=== PATIENT | female | born 1950 | race Caucasian/White ===

== ENCOUNTER 2023-07-12 13:57 | Emergency (ER) | payer MEDICARE, MEDICAID, SELFPAY ==
--- NOTE | ~2023-07-12 | XR_ITS ---
EXAMINATION: XR CALCANEUS, LEFT CLINICAL INFORMATION: Pain COMPARISON: None available. TECHNIQUE: Lateral and axial views of the left calcaneus were obtained. FINDINGS: The bones and soft tissues are normal. No fracture. Alignment is anatomic. Joint spaces are maintained. No enthesopathic spurs are evident at the calcaneus. Prominent vascular calcification present. XR/XR calcaneus LT min 2V IMPRESSION: 1. No acute fracture or dislocation. 2. Prominent vascular calcification.
[2023-07-12 16:03] VITALS: BP 119/69; PULSE 93; RESP 18; TEMP 36; O2SAT 93; BMI 20.7
--- NOTE | 2023-07-12 16:05 | ED_ITS ---
HPI - General Adult General Chief complaint: Wound/Laceration Stated complaint: L food wound? Time Seen by Provider: 07/12/23 21:12 Source: patient Mode of arrival: ambulatory Limitations: no limitations History of Present Illness HPI narrative: 73-year-old female who presents emergency department for evaluation pressure ulcer to her left heel. The patient is in a electric wheelchair secondary to mobility issues. Patient states that visiting nurse looked at her heel several days ago and noted a pressure ulcer to her left heel . The nurse took a picture of the wound and sent it to the PCP who advised the patient to go to the emergency department for evaluation. Patient states that she has had a pressure ulcer to her heel in the past but cannot remember which she will ulcer was in. She denies being ill in any way over the past several days. She denied fever, chills, loss of appetite, fatigue beyond her baseline. She states she does have sensation in her feet and she does feel some pain in the area of the ulcer but she states this minimal. Related Data Previous Rx's Medication Instructions Recorded cephalexin 500 mg capsule 500 mg PO QID 10 days #40 caps 07/12/23 doxycycline hyclate 100 mg tablet 100 mg PO Q12H 10 days #20 tabs 07/12/23 Allergies Allergy/AdvReac Type Severity Reaction Status Date / Time aspirin Allergy Difficulty Verified 07/12/23 16:02 Breathing Review of Systems 2 Review of Systems: Yes all other systems are reviewed and are negative [facility] Social History Social History Smoked in Last 30 Days: No Use of substances other than those prescribed or required for medical reasons: No Advance Directives: No Advance Directives Information Provided: Yes Physical Exam ED Vital Signs: Vital Signs - 24 hr 07/12/23 16:03 07/12/23 20:27 Temperature 96.8 F 98.0 F Pulse Rate 93 78 Respiratory Rate 18 16 Blood Pressure 119/69 150/76 H Pulse Oximetry 93 97 Oxygen Delivery Method Room Air Room Air BMI result Body Mass Index 20.7 Vital signs were normal Exam: General: Awake, alert in no distress, patient sitting in her electronic wheelchair Extremities: Patient has rigidity of both legs and it was difficult to straighten her left leg. I was able to visualize the ulcer the ulcer is approximately 3 x 2 cm, there is a thick eschar over the center of the ulcer, there is some slight erythema surrounding the ulcer but is not warm to the touch, there was no erythema of her foot ankle or lower extremity. There was no purulent drainage. Course Course Course Narrative: RME- 73 year old female presents for evaluation of a wound to her left heel. the patient is wheelchair-bound at baseline. She is unsure of how long she has had a wound to her left heel. Plan for Labs, x-ray of the calcaneus Medical Decision Making Medical Decision Making MDM Narrative: 73-year-old female who has limited mobility and is in a electric wheelchair who presents emergency department for evaluation of a left heel ulcer which was notice several days prior by her visiting nurse. Patient has minimal pain in the area. She has had no systemic symptoms. Examination is consistent with a pressure ulcer with a small area of cellulitis around the ulcer. There is an eschar over the center of the ulcer but no purulent drainage. Following laboratory evaluation was ordered: CBC, CMP, CRP, ESR Patient was treated with doxycycline 100 mg IV and Keflex 500 mg IV 21:49 My independent interpretation patient's laboratory evaluation is as follows, WBC was normal at 7400, AST and ALT were elevated 51 and 90. Glucose was elevated 126. CRP was elevated 1.15, ESR elevated 67. X-ray of the calcaneus did not reveal any obvious osteomyelitis at this time. Patient's ulcer was dressed with bacitracin and a nonstick dressing. She was given ordered her 1st dose of doxycycline and Keflex in the emergency department. She was started on doxycycline 100 mg q.12 hours times 10 days and Keflex 500 mg q.i.d. times 10 days. Patient will be referred to our wound clinic Lab Data 07/12/23 16:36 07/12/23 16:36 Labs: Lab Results 07/12/23 Range/Units 16:36 WBC 7.4 (4.8-10.8) X10*3/uL RBC 4.41 (4.20-5.50) X10*6/uL Hgb 13.0 (12.0-16.0) g/dl Hct 41.5 (37.0-47.0) % MCV 94.1 (80.0-98.0) fL MCH 29.5 (27.0-33.0) pg MCHC 31.3 (31.0-35.0) g/dl RDW 15.0 (11.0-16.0) % Plt Count 339 (160-400) X10*3/uL MPV 9.2 L (9.4-12.3) fL Immature Gran % (Auto) 0.4 (0.0-0.4) % Neut % (Auto) 73.8 H (45-73) % Lymph % (Auto) 14.6 L (20-40) % [place] % (Auto) 7.2 (2-11) % Eos % (Auto) 3.3 (0-4) % Baso % (Auto) 0.7 (0-2) % Lymph # (Auto) 1.1 L (1.2-4.9) X10*3/uL [place] # (Auto) 0.5 (0.1-1.2) X10*3/uL Eos # (Auto) 0.2 (0.0-0.4) X10*3/uL Baso # (Auto) 0.1 (0.0-0.2) X10*3/uL Abs Immat Gran (auto) 0.03 (0.00-0.03) X10*3/uL Absolute Neuts (auto) 5.4 (2.0-8.3) x10*3/uL Absolute Nucleated RBC 0.000 (0.0-0.012) X10*3/uL Nucleated RBC % (auto) 0.0 (0.0-0.2) /100WBC ESR 67 H (0-20) MM/HR Sodium 142 (135-145) mmol/L Potassium 3.8 (3.3-5.1) mmol/L Chloride 108 (96-108) mmol/L Carbon Dioxide 26 (22-29) mmol/L Anion Gap 12 (12-20) BUN 16 (9-16) mg/dL Creatinine 0.70 (0.5-1.4) mg/dL Estim Creat Clear Calc 73.9 Estimated GFR > 60 Random Glucose 127 H (60-115) mg/dL Lactic Acid 1.0 (0.5-2.0) mmol/L Calcium 9.5 (8.4-10.2) mg/dL Total Bilirubin 0.5 (0.0-1.0) mg/dL AST 51 H (5-31) U/L ALT 90 H (0-31) U/L Alkaline Phosphatase 76 (39-117) U/L C-Reactive Protein 1.15 H (< or = 0.50) mg/dL Total Protein 7.8 (6.5-8.0) g/dL Albumin 4.0 (3.5-5.0) g/dL Lipase 20 (8-78) U/L Independent Interpretation I performed an independent interpretation of an: Plain X-Ray Interpretation: My interpretation of the patient's two view calcaneus x-ray is as follows: no acute fractures, no osteomyelitis seen Radiology Impression Discussion of test interpretation with radiology: I have reviewed the radiologist's reading. Radiologist Impression: XR calcaneus LT min 2V IMPRESSION: 1. No acute fracture or dislocation. 2. Prominent vascular calcification. Dictated By: Mayur Maria MD Discharge Plan Discharge Clinical Impression: Pressure ulcer of heel Qualifiers: Laterality: left Cellulitis Qualifiers: Site of cellulitis: extremity Site of cellulitis of extremity: lower extremity Laterality: left Qualified Code(s): L03.116 - Cellulitis of left lower limb Patient Disposition: Home, Self-Care Instructions: Cellulitis (ED) Additional Instructions: The wound over your heel is consistent with a pressure ulcer. There is some slight redness around the wound which is consistent with a skin infection (cellulitis) Take doxycycline 100 mg, 1 pill every 12 hours for 10 days Take Keflex (cephalexin) 500 mg pills, 1 pill 4 times a day for 10 days. Apply bacitracin once a day to the wound. You will need to follow-up with our wound care clinic (Dr. Wakefield) for further management and treatment of this pressure ulcer. Follow-up with your doctor in 2 days. Please return to the emergency department if your symptoms get worse or if you develop any symptoms that are concerning to you. Prescriptions: New cephalexin 500 mg capsule 500 mg PO QID 10 Days Qty: 40 0RF doxycycline hyclate 100 mg tablet 100 mg PO Q12H 10 Days Qty: 20 0RF Referrals: Romi Wakefield MD [Physician] - 1 week (left heal pressure ulcer with cellulitis)
[2023-07-12 16:41] LABS: MANUAL DIFF FLAG NO
[2023-07-12 16:45] LABS: Basophils Absolute Auto 0.1 X10*3/uL (0.0-0.2); Basophils Percent Auto 0.7 % (0-2); Eosinophils Absolute Auto 0.2 X10*3/uL (0.0-0.4); Eosinophils Percent Auto 3.3 % (0-4); Hematocrit 41.5 % (37.0-47.0); Imm Gran Abs Auto 0.03 X10*3/uL (0.00-0.03); Imm Gran Pct Auto 0.4 % (0.0-0.4); Lymphocytes Absolute Auto 1.1 X10*3/uL (1.2-4.9); Lymphocytes Percent Auto 14.6 % (20-40); Mean Corpuscular HGB Conc 31.3 g/dl (31.0-35.0); Mean Corpuscular Hemoglobin 29.5 pg (27.0-33.0); Mean Corpuscular Volume 94.1 fL (80.0-98.0); Mean Platelet Volume 9.2 fL (9.4-12.3); Monocytes Absolute Auto 0.5 X10*3/uL (0.1-1.2); Monocytes Percent Auto 7.2 % (2-11); Neutrophils Absolute Auto 5.4 x10*3/uL (2.0-8.3); Neutrophils Percent Auto 73.8 % (45-73); Platelet Count 339 X10*3/uL (160-400); Red Blood Count 4.41 X10*6/uL (4.20-5.50); White Blood Count 7.4 X10*3/uL (4.8-10.8)
[2023-07-12 17:00] LABS: Alanine Aminotransferase 90 U/L (0-31); Alkaline Phosphatase 76 U/L (39-117); Anion Gap 12 (12-20); Aspartate Amino Transferase 51 U/L (5-31); Bilirubin Total 0.5 mg/dL (0.0-1.0); Blood Urea Nitrogen 16 mg/dL (9-16); C Reactive Protein 1.15 mg/dL (< or = 0.50); Calcium 9.5 mg/dL (8.4-10.2); Carbon Dioxide 26 mmol/L (22-29); Chloride 108 mmol/L (96-108); Creatinine Clr Calc Pharmacy 73.9; Estimated Glomerular Filt Rate > 60; Glucose Random 127 mg/dL (60-115); Lipase 20 U/L (8-78); Potassium 3.8 mmol/L (3.3-5.1); Sodium 142 mmol/L (135-145); Total Protein 7.8 g/dL (6.5-8.0)
[2023-07-12 17:22] LABS: Erythrocyte Sedimentation Rate 67 MM/HR (0-20)
--- NOTE | 2023-07-12 20:20 | PC.NURSE ---
Assumed care of pt. Pt lives in assisted living, noted pain to heel a few days [employer], wound appearing on heel as documented appears to be long than a few days old. Pt wheelchair bound, limited CMS to BLE, endorsing mild pain at this time.
[2023-07-12 20:27] VITALS: BP 150/76; PULSE 78; RESP 16; TEMP 36.7; O2SAT 97
[2023-07-12] MEDS: cephALEXin 500 MG CAPSULE PO (21:54)
[2023-07-12] MEDS: Doxycycline Monohydrate 100 MG CAPSULE PO (21:55)
== END 2023-07-12 22:07 | disposition home or self-care (01) ==
PROVIDERS: Physician Assistant; Emergency Provider Emergency Medicine Emergency Medical Services; PCP Internal Medicine
DX: L03.116 Cellulitis of left lower limb (principal); L97.429 Non-pressure chronic ulcer of left heel and midfoot with unspecified severity; Z79.899 Other long term (current) drug therapy
CPT/HCPCS: 36415; 73650; 80053; 83605; 83690; 85025; 85652; 86140; 87040; 99283; 99284

== ENCOUNTER 2023-08-05 12:16 | Emergency (ER) | payer MEDICARE, SELFPAY ==
--- NOTE | ~2023-08-05 | XR_ITS ---
EXAMINATION: XR CALCANEUS, LEFT CLINICAL INFORMATION: Deep wound. Question bone erosion. COMPARISON: None available. TECHNIQUE: Lateral and axial views of the left calcaneus were obtained. FINDINGS: The bones are osteopenic. No fracture or dislocation. No x-ray evidence of osteomyelitis. Joint spaces are normal. Soft tissue arterial calcification. XR/XR calcaneus LT min 2V IMPRESSION: Osteopenia. No x-ray evidence of osteomyelitis.
--- NOTE | ~2023-08-05 | XR_ITS ---
EXAMINATION: XR ABDOMEN KUB CLINICAL INDICATION: Fecal and reaction COMPARISON: None available. TECHNIQUE: AP view of the abdomen. FINDINGS: Mild stool burden. No dilated bowel to suggest obstruction. No evidence of fecal reaction. No free air. IVC filter appears broken with multiple interrupted struts. Left hip replacement. Evidence of old trauma to the pelvis. Degenerative changes of the lumbar spine. XR/XR KUB IMPRESSION: Mild stool burden. No evidence of fecal impaction obstruction. Broken IVC filter.
--- NOTE | 2023-08-05 12:39 | ED_ITS ---
HPI - Abdominal Pain General Chief Complaint: Abdominal Pain Stated Complaint: Stomach Issues Sent By PCP Time Seen by Provider: 08/05/23 19:34 Source: patient Mode of arrival: ambulatory Limitations: no limitations History of Present Illness HPI narrative: Patient history of multiple sclerosis on wheelchair bound does have history of constipation usually moves every 2 3 days this time he has not moved her bowels for last 1 week feels abdomen floated had a abdominal x-ray was outpatient which showed greater amount of stool with possible ileus no vomiting patient not eating much has taken Dulcolax given by PCP yesterday patient is still passing flatus Related Data Previous Rx's Medication Instructions Recorded cephalexin 500 mg capsule 500 mg PO QID 10 days #40 caps 07/12/23 doxycycline hyclate 100 mg tablet 100 mg PO Q12H 10 days #20 tabs 07/12/23 bisacodyl 5 mg tablet,delayed 5 mg PO BEDTIME PRN constipation 08/06/23 release (Dulcolax (bisacodyl)) #30 tabs cefuroxime axetil 500 mg tablet 500 mg PO BID 7 days #14 tabs 08/06/23 doxycycline hyclate 100 mg tablet 100 mg PO BID #20 tabs 08/06/23 polyethylene glycol 3350 17 17 g PO DAILY #510 grams 08/06/23 gram/dose oral powder (Miralax) Allergies Allergy/AdvReac Type Severity Reaction Status Date / Time aspirin Allergy Difficulty Verified 08/05/23 12:40 Breathing Review of Systems Review of Systems Yes all other systems are reviewed and are negative [facility] Past Medical History Medical History (Updated 08/06/23 @ 00:42 by Navarro Pierson MD) Chronic constipation Multiple sclerosis Social History Social History Smoked in Last 30 Days: No Use of substances other than those prescribed or required for medical reasons: No Advance Directives: No Advance Directives Information Provided: Yes Physical Exam ED Vital Signs: Vital Signs - 24 hr 08/05/23 12:40 08/05/23 19:40 08/05/23 20:11 Temperature 98 F 97.8 F Pulse Rate 111 H 105 H Respiratory Rate 19 16 Blood Pressure 128/93 H 156/79 H Pulse Oximetry 94 94 Oxygen Delivery Method Room Air Room Air 08/05/23 23:06 08/06/23 01:13 Temperature 97.5 F 97.7 F Pulse Rate 96 100 Respiratory Rate 14 16 Blood Pressure 162/86 H 144/68 H Pulse Oximetry 93 92 Oxygen Delivery Method Room Air Room Air BMI result Body Mass Index 20.7 Appearance: Alert. Oriented X3. No acute distress. Eyes: No pallor or icterus ENT: Pharynx normal. Oral Mucosa moist Neck: Normal inspection. Neck supple. CVS: Normal heart rate and rhythm. Pulses normal. Respiratory: No respiratory distress. Equal air entry bilateral, no wheezing/rales/rhonchi Abdomen: Soft and nontender. Bowel sounds are sluggish no mass palpable, no CVA tenderness Skin: Skin warm and dry. Normal skin color. Normal skin turgor. Extremities: Left heel blackish eschar at the calcaneus with slight discharge Neuro: Oriented X 3. Decreased movement of lower extremity Course Course Course Narrative: RME: 73 year-oldF w/ PMHx MS, wheelchair bound presenting to the ED from assisted living c/o abdominal pain w/o BM x7 days. Had outpatient XR showing ileus. Taking Laxative 1x daily w/o relief. admits to reduced flatuance Labs, UA, CT ordered Full HPI, ROS and PE to be performed by primary ED provider. Medical Decision Making Medical Decision Making [facility] Narrative: Patient constipation KUB did not show any fecal impaction patient received p.o. milk of magnesia and Dulcolax will discharge patient home on oral medication for constipation does have a chronic left heel ulcer followed by wound care dressing was applied will give antibiotic doxycycline Ceftin which will help in the healing of the wound along with UTI Differential Diagnosis Differential Diagnoses: The differential diagnosis associated with the presentation includes Fecal impaction/constipation/UTI/wound infection Admission/Observation Consideration of admission/observation: Escalation of care including admission/observation considered Lab Data [facility] Lab Attestation statement: I reviewed the patient's lab results. 08/05/23 15:10 08/05/23 15:10 Labs: Lab Results 08/05/23 08/05/23 Range/Units 15:10 23:11 WBC 7.0 (4.8-10.8) X10*3/uL RBC 4.57 (4.20-5.50) X10*6/uL Hgb 13.7 (12.0-16.0) g/dl Hct 43.3 (37.0-47.0) % MCV 94.7 (80.0-98.0) fL MCH 30.0 (27.0-33.0) pg MCHC 31.6 (31.0-35.0) g/dl RDW 14.7 (11.0-16.0) % Plt Count 281 (160-400) X10*3/uL MPV 9.7 (9.4-12.3) fL Immature Gran % (Auto) 0.3 (0.0-0.4) % Neut % (Auto) 77.3 H (45-73) % Lymph % (Auto) 13.4 L (20-40) % [place] % (Auto) 6.9 (2-11) % Eos % (Auto) 1.7 (0-4) % Baso % (Auto) 0.4 (0-2) % Lymph # (Auto) 0.9 L (1.2-4.9) X10*3/uL [place] # (Auto) 0.5 (0.1-1.2) X10*3/uL Eos # (Auto) 0.1 (0.0-0.4) X10*3/uL Baso # (Auto) 0.0 (0.0-0.2) X10*3/uL Abs Immat Gran (auto) 0.02 (0.00-0.03) X10*3/uL Absolute Neuts (auto) 5.4 (2.0-8.3) x10*3/uL Absolute Nucleated RBC 0.000 (0.0-0.012) X10*3/uL Nucleated RBC % (auto) 0.0 (0.0-0.2) /100WBC Sodium 140 (135-145) mmol/L Potassium 4.0 (3.3-5.1) mmol/L Chloride 107 (96-108) mmol/L Carbon Dioxide 22 (22-29) mmol/L Anion Gap 15 (12-20) BUN 11 (9-16) mg/dL Creatinine 0.68 (0.5-1.4) mg/dL Estim Creat Clear Calc 76.0 Estimated GFR > 60 Random Glucose 79 (60-115) mg/dL Calcium 9.2 (8.4-10.2) mg/dL Magnesium 2.0 (1.6-2.6) mg/dL Total Bilirubin 0.6 (0.0-1.0) mg/dL Direct Bilirubin 0.3 (0.0-0.5) mg/dL AST 23 (5-31) U/L ALT 20 (0-31) U/L Alkaline Phosphatase 78 (39-117) U/L Total Protein 7.5 (6.5-8.0) g/dL Albumin 3.8 (3.5-5.0) g/dL Lipase 19 (8-78) U/L Urine Color Yellow Urine Appearance Clear Urine pH 5.5 (5.0-9.0) Ur Specific [place] 1.025 (1.005-1.025) Urine Protein Trace (Neg-Trace) mg/dL Urine Glucose (UA) Negative (Negative) mg/dL Urine Ketones 80 (Negative) mg/dL Urine Blood Moderate (2+) H (Negative) Urine Nitrite Positive H (Negative) Ur Leukocyte Esterase Small (1+) H (Negative) Urine RBC 0-2 (0-2) /HPF Urine WBC 11-20 H (0-5) /HPF Ur Squamous Epith Cells 6-10 (0-2) /HPF Urine Bacteria 4+ (None Seen) Hyaline Casts 0-2 (0-2) /LPF Independent Interpretation I performed an independent interpretation of an: Plain X-Ray Radiology Impression Discussion of test interpretation with radiology: I have reviewed the radiologist's reading. Medications Administered Discontinued Medications Generic Name Dose Route Start Last Admin Trade Name Freq PRN Reason Stop Dose Admin Bisacodyl 10 mg 08/05/23 20:04 08/05/23 22:43 Bisacodyl 5 Mg Tablet. PO 08/05/23 20:05 10 mg ONCE ONE Administration Cefuroxime Axetil 500 mg 08/06/23 01:05 08/06/23 01:19 Cefuroxime Axetil 500 Mg Tablet PO 08/06/23 01:06 500 mg ONCE ONE Administration Doxycycline Monohydrate 100 mg 08/06/23 00:38 08/06/23 01:19 Doxycycline Monohydrate 100 Mg Capsule PO 08/06/23 00:39 100 mg ONCE ONE Administration Magnesium Hydroxide 30 ml 08/05/23 20:04 08/05/23 22:42 Milk Of Magnesia 30 Ml Oral.Susp PO 08/05/23 20:05 30 ml ONCE ONE Administration Polyethylene Glycol 17 gm 08/06/23 00:37 08/06/23 01:19 Polyethylene Glycol 3350 17 Gm Powd.Pack PO 08/06/23 00:38 17 gm ONCE ONE Administration Discharge Plan Discharge Clinical Impression: Constipation, Non healing left heel wound, Acute UTI Patient Disposition: Home, Self-Care Instructions: Constipation (ED), Wound Infection (ED), Urinary Tract Infection in Older Adults (ED) Additional Instructions: Local care of the left heel wound as advised and follow-up with wound care Antibiotic as prescribed for chronic wound and UTI Drink plenty of fluids MiraLax daily for constipation Follow with PCP Prescriptions: New polyethylene glycol 3350 [Miralax] 17 gram/dose powder 17 g PO DAILY Qty: 510 0RF bisacodyl [Dulcolax (bisacodyl)] 5 mg tablet,delayed release (DR/EC) 5 mg PO BEDTIME PRN (Reason: constipation) Qty: 30 0RF cefuroxime axetil 500 mg tablet 500 mg PO BID 7 Days Qty: 14 0RF doxycycline hyclate 100 mg tablet 100 mg PO BID Qty: 20 0RF No Action cephalexin 500 mg capsule 500 mg PO QID 10 Days Qty: 40 0RF doxycycline hyclate 100 mg tablet 100 mg PO Q12H 10 Days Qty: 20 0RF
[2023-08-05 12:40] VITALS: BP 128/93; PULSE 111; RESP 19; TEMP 36.6; O2SAT 94; BMI 20.7
[2023-08-05 15:15] LABS: MANUAL DIFF FLAG NO
[2023-08-05 15:16] LABS: Basophils Percent Auto 0.4 % (0-2); Eosinophils Absolute Auto 0.1 X10*3/uL (0.0-0.4); Eosinophils Percent Auto 1.7 % (0-4); Hematocrit 43.3 % (37.0-47.0); Hemoglobin 13.7 g/dl (12.0-16.0); Imm Gran Abs Auto 0.02 X10*3/uL (0.00-0.03); Imm Gran Pct Auto 0.3 % (0.0-0.4); Lymphocytes Absolute Auto 0.9 X10*3/uL (1.2-4.9); Lymphocytes Percent Auto 13.4 % (20-40); Mean Corpuscular HGB Conc 31.6 g/dl (31.0-35.0); Mean Corpuscular Volume 94.7 fL (80.0-98.0); Mean Platelet Volume 9.7 fL (9.4-12.3); Monocytes Absolute Auto 0.5 X10*3/uL (0.1-1.2); Monocytes Percent Auto 6.9 % (2-11); Neutrophils Absolute Auto 5.4 x10*3/uL (2.0-8.3); Neutrophils Percent Auto 77.3 % (45-73); Platelet Count 281 X10*3/uL (160-400); Red Blood Count 4.57 X10*6/uL (4.20-5.50); Red Cell Distribution Width 14.7 % (11.0-16.0)
[2023-08-05 15:32] LABS: Alanine Aminotransferase 20 U/L (0-31); Albumin Level 3.8 g/dL (3.5-5.0); Alkaline Phosphatase 78 U/L (39-117); Anion Gap 15 (12-20); Aspartate Amino Transferase 23 U/L (5-31); Bilirubin Direct 0.3 mg/dL (0.0-0.5); Bilirubin Total 0.6 mg/dL (0.0-1.0); Blood Urea Nitrogen 11 mg/dL (9-16); Calcium 9.2 mg/dL (8.4-10.2); Carbon Dioxide 22 mmol/L (22-29); Chloride 107 mmol/L (96-108); Estimated Glomerular Filt Rate > 60; Glucose Random 79 mg/dL (60-115); Lipase 19 U/L (8-78); Sodium 140 mmol/L (135-145); Total Protein 7.5 g/dL (6.5-8.0)
[2023-08-05 19:40] VITALS: PULSE 105; RESP 16; TEMP 36.6; O2SAT 94
[2023-08-05 20:11] VITALS: BP 156/79
[2023-08-05] MEDS: Milk of Magnesia 30 ML ORAL.SUSP PO (22:42)
[2023-08-05] MEDS: bisacodyL 5 MG TABLET.DR 10 MG PO (22:43)
[2023-08-05 23:06] VITALS: BP 162/86; PULSE 96; RESP 14; TEMP 36.4; O2SAT 93
[2023-08-05 23:17] LABS: Appearance Urine Clear; Color Urine Yellow; Glucose Urine UA Negative (Negative); Leukocyte Esterase Urine Small (1+) (Negative); Nitrite Urine Positive (Negative); PH 5.5 (5.0-9.0); Specific Gravity - Urine 1.025 (1.005-1.025); UMIC TRIGGER UACC YES; Urine Blood Moderate (2+) (Negative); Urine Ketones 80 mg/dL (Negative); Urine Protein Trace mg/dL (Neg-Trace)
[2023-08-05 23:27] LABS: Bacteria Urine 4+ (None Seen); Hyaline Casts Urine 0-2 /LPF (0-2); RBC Urine 0-2 /HPF (0-2); UACC Culture Trigger YES
[2023-08-06 01:13] VITALS: BP 144/68; PULSE 100; RESP 16; TEMP 36.5; O2SAT 92
[2023-08-06] MEDS: polyethylene glycoL 3350 17 GM POWD.PACK PO (01:19)
[2023-08-06] MEDS: cefuroxime axetiL 500 MG TABLET PO (01:19)
[2023-08-06] MEDS: Doxycycline Monohydrate 100 MG CAPSULE PO (01:19)
== END 2023-08-06 04:02 | disposition home or self-care (01) ==
PROVIDERS: Physician Assistant; Emergency Provider Internal Medicine; PCP Internal Medicine
DX: K59.00 Constipation, unspecified (principal); L97.429 Non-pressure chronic ulcer of left heel and midfoot with unspecified severity; N39.0 Urinary tract infection, site not specified; G35 Multiple sclerosis
CPT/HCPCS: 36415; 73650; 74018; 80048; 80076; 81001; 83690; 83735; 85025; 87086; 99284

== ENCOUNTER 2023-08-27 14:49 | Outpatient (REF) | payer MEDICARE, SELFPAY ==
--- NOTE | ~2023-08-27 | US_ITS ---
EXAMINATION: US NONINVASIVE ASSESSMENT OF THE ARTERIES OF THE LEFT LOWER EXTREMITIES INCLUDING bilateral PVR EXAM AND LOWER EXTREMITY DUPLEX. CLINICAL INFORMATION: Peripheral vascular disease COMPARISON: None TECHNIQUE: Ankle pulse volume recordings, ankle pressure measurements and ankle brachial indices were obtained of the lower extremity arterial system bilaterally in addition to duplex Doppler techniques with wave form analysis and measurement of velocities of the left common femoral, profunda femoral, superficial femoral, popliteal, tibial and peroneal arteries. The study was performed only at rest. FINDINGS: RIGHT LE. THE RIGHT ANKLE-BRACHIAL INDEX IS: 1.18 >0.97-1.25 = normal - no significant arterial disease 0.75-0.96 = mild peripheral arterial disease 0.5-0.74 = moderate peripheral arterial disease <0.50 = severe peripheral arterial disease <0.30 = critical arterial disease 2. SEGMENTAL PRESSURES (mmHg): Ankle: PT 200, DP 200 3. PVR WAVEFORMS: Ankle: Normal 4. DIRECT DUPLEX: Not performed. LEFT LE. THE LEFT ANKLE-BRACHIAL INDEX IS: 1.18 >0.97-1.25 = normal - no significant arterial disease 0.75-0.96 = mild peripheral arterial disease 0.5-0.74 = moderate peripheral arterial disease <0.50 = severe peripheral arterial disease <0.30 = critical arterial disease 2. SEGMENTAL PRESSURES: Ankle: PT 0, DP 200 3. PVR WAVEFORMS: Ankle: Dampened 4. DIRECT DUPLEX: Common femoral artery: 65 cm/s, biphasic Profunda femoris artery: 59 cm/s, Multiphasic Superficial femoral artery (proximal): Occluded Superficial femoral artery (mid): Occluded Superficial femoral artery (distal): 82 cm/s, monophasic Distal popliteal artery: 33 cm/s, monophasic Distal anterior tibial artery: 27 cm/s, monophasic Mid posterior tibial artery: 21 cm/s, monophasic Dorsalis pedis: 11 cm/s, monophasic US/US arterial duplex LE LT IMPRESSION: 1. Long segment occlusion of the proximal and mid left superficial femoral artery with reconstitution distally from collateral flow. Distal to the occlusion, there is diminished monophasic perfusion suggestive of peripheral vascular disease. 2. Left proximal SHERI occluded but patent distally. 3. Nondiagnostic right lower extremity JENNIFER secondary to elevated ankle pressures.
--- NOTE | ~2023-08-27 | US_ITS ---
EXAMINATION: US NONINVASIVE ASSESSMENT OF THE ARTERIES OF THE LEFT LOWER EXTREMITIES INCLUDING bilateral PVR EXAM AND LOWER EXTREMITY DUPLEX. CLINICAL INFORMATION: Peripheral vascular disease COMPARISON: None TECHNIQUE: Ankle pulse volume recordings, ankle pressure measurements and ankle brachial indices were obtained of the lower extremity arterial system bilaterally in addition to duplex Doppler techniques with wave form analysis and measurement of velocities of the left common femoral, profunda femoral, superficial femoral, popliteal, tibial and peroneal arteries. The study was performed only at rest. FINDINGS: RIGHT LE. THE RIGHT ANKLE-BRACHIAL INDEX IS: 1.18 >0.97-1.25 = normal - no significant arterial disease 0.75-0.96 = mild peripheral arterial disease 0.5-0.74 = moderate peripheral arterial disease <0.50 = severe peripheral arterial disease <0.30 = critical arterial disease 2. SEGMENTAL PRESSURES (mmHg): Ankle: PT 200, DP 200 3. PVR WAVEFORMS: Ankle: Normal 4. DIRECT DUPLEX: Not performed. LEFT LE. THE LEFT ANKLE-BRACHIAL INDEX IS: 1.18 >0.97-1.25 = normal - no significant arterial disease 0.75-0.96 = mild peripheral arterial disease 0.5-0.74 = moderate peripheral arterial disease <0.50 = severe peripheral arterial disease <0.30 = critical arterial disease 2. SEGMENTAL PRESSURES: Ankle: PT 0, DP 200 3. PVR WAVEFORMS: Ankle: Dampened 4. DIRECT DUPLEX: Common femoral artery: 65 cm/s, biphasic Profunda femoris artery: 59 cm/s, Multiphasic Superficial femoral artery (proximal): Occluded Superficial femoral artery (mid): Occluded Superficial femoral artery (distal): 82 cm/s, monophasic Distal popliteal artery: 33 cm/s, monophasic Distal anterior tibial artery: 27 cm/s, monophasic Mid posterior tibial artery: 21 cm/s, monophasic Dorsalis pedis: 11 cm/s, monophasic US/US JENNIFER complete IMPRESSION: 1. Long segment occlusion of the proximal and mid left superficial femoral artery with reconstitution distally from collateral flow. Distal to the occlusion, there is diminished monophasic perfusion suggestive of peripheral vascular disease. 2. Left proximal SHERI occluded but patent distally. 3. Nondiagnostic right lower extremity JENNIFER secondary to elevated ankle pressures.
--- NOTE | ~2023-08-27 | US_ITS ---
EXAMINATION: US VENOUS ULTRASOUND WITH DOPPLER LOWER EXTREMITY, RIGHT CLINICAL INFORMATION: Right leg edema. COMPARISON: None available. TECHNIQUE: Ultrasound of the deep veins is performed from the hip to the calf with compression sonography and color and pulse Doppler assessment. Spectral analysis with color-flow imaging is performed. FINDINGS: Study limited. Patient scanned in the wheelchair. Mid femoral vein not well seen. There is no evidence of deep vein thromboses. Visualized vessels from the groin through the calf show vascular flow on both spectral and color Doppler. There is no significant popliteal fossa cyst. If the patient's symptoms persist, followup ultrasound in 5 days 7 days might be of value to exclude proximal propagation from a non-visualized calf vein. US/US venous duplex LE RT IMPRESSION: No DVT demonstrated in the right lower extremity.
== END 2023-08-27 14:50 | disposition home or self-care (01) ==
LOC: HO.US 14:49
PROVIDERS: PCP Internal Medicine; Visit Provider Physician Assistant
DX: R22.41 Localized swelling, mass and lump, right lower limb (principal); R60.0 Localized edema; I73.9 Peripheral vascular disease, unspecified
CPT/HCPCS: 93923; 93926; 93971

== ENCOUNTER 2024-01-26 13:00 | Outpatient (REF) | payer MEDICARE, SELFPAY ==
--- NOTE | ~2024-01-26 | CT_ITS ---
EXAMINATION: CT CHEST WITHOUT CONTRAST CLINICAL INFORMATION: Right base infiltrate. COMPARISON: None available. TECHNIQUE: Multidetector volumetric CT imaging of the chest was done. Axial MIP volume rendering provided. Sagittal and coronal reformatted images were obtained. This CT examination was performed using dose optimization techniques as appropriate, variously including the following: *Automated exposure control *Adjustment of mA and/or kV according to patient size (this includes techniques or standardized protocols for targeted exams where dose is matched to indication/reason for exam; i.e. extremities or head) *Use of iterative reconstruction technique DLP: 376 mGy-cm FINDINGS: DISINTEGRATOR FEEDER: The lungs are grossly clear. LUNGS: There is biapical pleural and parenchymal scarring. There are left apical calcifications, suggesting prior asbestos exposure or infection. Within the posterior segment of the left upper lobe laterally (6:210), a 3 mm benign pleural-based lymph node is seen. There is a 6 mm benign fissural lymph node. There is no parenchymal nodule, mass, infiltrate or groundglass opacity. There is bibasilar pleural and parenchymal scarring, left greater than right. No generalized small airway thickening is seen. The central airways appear patent. Within the leftward mid trachea (6:140), there is a focus of inspissated mucous. MEDIASTINUM: The thyroid is unremarkable. There is no thoracic aortic aneurysm. There are mild atherosclerotic calcifications of the great vessel origins and thoracic aorta. There are calcifications of the aortic and mitral annuli. No mediastinal or hilar lymphadenopathy is seen. CORONARY ARTERY CALCIFICATION: None visualized on this study. PLEURA: There are trace bilateral pleural effusions. There is mild pleural thickening at the posteromedial bases, left greater than right. AXILLA: No lymphadenopathy. UPPER ABDOMEN: Unremarkable. OSSEOUS STRUCTURES: There are moderate T6 and T8 anterior wedge compression fractures, a mild T11 anterior wedge compression fracture, and a marked L1 anterior wedge compression fracture. 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 There is multi-level lower cervical and thoracic degenerative disc disease, most pronounced at C5-C6, T9-T10 and T11-T12. No acute or aggressive osseous finding is noted. CT/CT chest wo IV con IMPRESSION: 1. No pulmonary parenchymal nodule, mass, infiltrate or groundglass opacity is seen. 2. There is biapical and bibasilar pleural and parenchymal scarring, left greater than right. 3. Left apical pleural calcifications suggest prior asbestos exposure or infection. 4. There is a focus of inspissated mucous within the leftward the trachea. 5. No thoracic lymphadenopathy is seen. There are trace bilateral pleural effusions. 6. There are multi-level thoracic compression fractures. There is multi-level cervical thoracic degenerative disc disease. No acute or aggressive osseous finding is noted. Fleischner guidelines were followed.
== END 2024-01-26 13:01 | disposition home or self-care (01) ==
LOC: HO.CT 13:00
PROVIDERS: PCP Internal Medicine
DX: R91.8 Other nonspecific abnormal finding of lung field (principal)
CPT/HCPCS: 71250

== ENCOUNTER 2024-09-29 15:07 | Outpatient (RCR) | payer MEDICARE, OTHER, SELFPAY | END 2024-09-29 17:00 | disposition home or self-care (01) | LOC: HO.WCC 15:07 | PROVIDERS: PCP Internal Medicine; Visit Provider Colon & Rectal Surgery | DX: I87.311 Chronic venous hypertension (idiopathic) with ulcer of right lower extremity (principal); L97.812 Non-pressure chronic ulcer of other part of right lower leg with fat layer exposed; G35 Multiple sclerosis; I73.9 Peripheral vascular disease, unspecified; G81.14 Spastic hemiplegia affecting left nondominant side | CPT/HCPCS: 11042; 11043; 11045; 11046; 15271; 17250; 29581; 87070; 87077; 87186; 87205; 97597; 97605; 99211; 99212; 99213; Q4187 ==